=== PATIENT | male | born 1960 | race Caucasian/White ===

== ENCOUNTER 2023-07-08 15:49 | Emergency (ER) | payer OTHER, SELFPAY ==
[2023-07-08] VITALS (9 sets, daily range): BP systolic 158–179; BP diastolic 89–104; PULSE 65–80; RESP 16–22; TEMP 37.1; O2SAT 96–100; BMI 29.8
--- NOTE | 2023-07-08 16:00 | DI.RAD.S_ITS ---
PROCEDURE: XR CHEST 1V INDICATIONS: chest pain TECHNIQUE: One view of the chest was acquired. COMPARISON: None. FINDINGS: Surgical changes and devices: None. Lungs and pleura: Lungs are clear. No pleural effusions or pneumothorax. Mediastinum: Mediastinal contours appear normal. Heart size is normal. Bones and chest wall: No suspicious bony lesions. Overlying soft tissues appear unremarkable. IMPRESSION: No acute cardiopulmonary disease process. Dictated by: Farrah Vital MD, PhD on 07/08/2023 at 16:35 Approved by: Farrah Vital MD, PhD on 07/08/2023 at 16:36
[2023-07-08] MEDS: ASPIRIN 81 MG CHEW TAB 324 MG PO (16:07)
[2023-07-08 16:16] LABS: Add Manual Diff / Slide Review NO; Basophils Absolute Auto 100 /uL (0-100); Basophils Percent Auto 1.1 % (0-2); Eosinophils Absolute Auto 200 /uL (0-450); Eosinophils Percent Auto 3.8 % (2-4); Hematocrit 44.1 % (41-53); Hemoglobin 14.7 g/dL (13.5-17.5); Lymphocytes Absolute Auto 1200 /uL (1100-4500); Lymphocytes Percent Auto 22.6 % (25-40); Mean Corpuscular HGB Conc 33.4 % (30-36); Mean Corpuscular Hemoglobin 29.8 PG (26-34); Mean Corpuscular Volume 89.2 fL (80-100); Monocytes Absolute Auto 500 /uL (0-900); Monocytes Percent Auto 10.1 % (3-14); Neutrophils Absolute Auto 3300 /uL (1500-7000); Neutrophils Percent Auto 62.4 % (50-75); Platelet Count 195 X10^3/uL (150-400); Red Blood Cell Count 4.95 X10^6/uL (4.5-5.9); Red Cell Distribution Width 13.1 % (11.6-14.8); White Blood Cell Count 5.2 X10^3/uL (4.5-11.0)
[2023-07-08 16:25] LABS: INR 1.1 (0.9-1.3); Prothrombin Time 12.1 SECONDS (10.1-12.7)
[2023-07-08 16:28] LABS: PTT Partial Thromboplastin Tim 30 SECONDS (26-36)
[2023-07-08 16:30] LABS: Alanine Aminotransferase 24 IU/L (<50); Albumin 4.2 g/dL (3.5-5.0); Albumin Globulin Ratio 1.6 (1.0-2.8); Alkaline Phosphatase 59 U/L (38-126); Aspartate Aminotransferase 21 IU/L (17-59); BUN Creatinine Ratio 23.9 (6-22); Bilirubin Total 0.3 mg/dL (0.2-1.3); Blood Urea Nitrogen 17 mg/dL (9-20); Calcium 8.8 mg/dL (8.4-10.2); Carbon Dioxide 25 mmol/L (22-32); Chloride 106 mmol/L (98-107); Creatine Kinase 100 U/L (55-170); Estimated Glomerular Filt Rate > 60 mL/min (>60); Globulin 2.6 g/dL (1.7-4.1); Glucose 94 mg/dL (80-110); HEMOLYSIS < 15 (0-50); Lipase 152 U/L (23-300); Magnesium 2.1 mg/dL (1.6-2.3); Potassium 3.9 mmol/L (3.4-5.1); Sodium 138 mmol/L (137-145); Total Protein 6.8 g/dL (6.3-8.2)
[2023-07-08 16:41] LABS: Troponin I < 0.012 ng/mL (0.01-0.034)
--- NOTE | 2023-07-08 17:27 | ED_ITS ---
HPI - Arrhythmia/Palpitations General Chief Complaint: Arrhythmia/Palpitations Stated Complaint: heart palpitations, swelling in lt breast glands Time Seen by Provider: 07/08/23 15:59 Source: patient Mode of arrival: Ambulatory History of Present Illness HPI narrative: 62-year-old male with history of hypothyroidism, hypertension presents by private vehicle from home for palpitations. Patient states that he had COVID-19 3 weeks ago, and after his COVID-19 infection cleared he began to experience intermittent palpitations. The palpitations are intermittent, seemed to be worsened by sugar intake, patient can not identify what makes him improve. He began to worry about his heart and since the palpitations have persisted he decided to present for evaluation. States that he was evaluated by Cardiology and [place] 4 years ago and states that he was told that he has ?0? calcifications in his heart. Related Data Home Medications Medication Instructions Recorded Confirmed ACETAMINOPHEN 0 mg PO Q4HP ##0 10/14/12 Allergies Allergy/AdvReac Type Severity Reaction Status Date / Time No Known Drug Allergies Allergy Verified 07/08/23 15:59 Review of Systems Review of Systems Narrative: CONSTITUTIONAL- Denies: fever, chills, fatigue HEENT- Denies: sore throat, nosebleed, vision changes RESPIRATORY- Denies: shortness of breath, cough, wheezing CARDIAC-reports: Palpitations Denies: chest pain, edema, orthopnea GI- Denies: abdominal pain, nausea, vomiting, constipation, diarrhea - Denies: frequency, dysuria, hematuria, flank pain MSK- Denies: extremity pain, extremity swelling, joint pain, joint swelling SKIN- Denies: rash, itching, burn, swelling NEUROLOGICAL- Denies: headache, numbness, weakness, dizziness PSYCHIATRIC- Denies: anxiety, depression, suicidal ideation, homicidal ideation Patient History Social History Smoking Status: Current every day smoker Smoking Status: Current every day smoker tobacco type: vaping alcohol intake frequency: a few times a month Substance Use Type: does not use Exam Initial Vital Signs Initial Vital Signs: Vital Signs Temperature 98.7 F 07/08/23 15:50 Pulse Rate 77 07/08/23 15:50 Respiratory Rate 18 07/08/23 15:50 Blood Pressure 179/104 H 07/08/23 15:50 Pulse Oximetry 98 07/08/23 15:50 Oxygen Delivery Method Room Air 07/08/23 15:50 Const: Awake, alert, no acute distress, nontoxic appearing Eyes: PERRL, EOMI, conjunctiva normal ENT: Atraumatic, dentition normal, mucous membranes moist Cardiac: regular rate, regular rhythm RESP: unlabored, clear bilaterally, no wheezing GI: Atraumatic, soft, nontender, nondistended, no rebound, no guarding MSK: Atraumatic, full range of motion, pulses equal Skin: Warm, Dry, intact, no rashes Neuro: AO x3, CN II-XII grossly intact, moves all extremities Psych: affect normal, mood normal, not suicidal, not homicidal Course Course Course Narrative: Well-appearing patient with several weeks of the sensation of palpitations. EKG is normal sinus rhythm without concerning findings. We will place on cardiac monitoring we will obtain cardiac workup. Orders Ordered: Discontinued Medications Aspirin (Aspirin 81 Mg Chew Tab) 324 mg PO NOW ONE Stop: 07/08/23 16:01 Last Admin: 07/08/23 16:07 Dose: 324 mg Documented By: ANNE Reevaluation(s) Reevaluation #1: Laboratory work is reviewed, unremarkable. Chest x-ray negative for acute findings. Patient has remained on computer assembler, there were no abnormal even ts noted. Patient informed of all lab and imaging findings, I counseled that I do not know the cause of his palpitations however there is no evidence of heart attack, thyroid issues, electrolyte abnormalities. Patient expressed understanding, he will follow up with his community health promoter in [place]. ED return precautions discussed at bedside. Patient expressed understanding of the plan and is in agreement at this time. All questions answered at the time of discharge. Vital Signs Vital signs: Vital Signs - 8 hr 07/08/23 15:50 07/08/23 15:56 07/08/23 16:00 Temperature 98.7 F Pulse Rate 77 77 75 Respiratory Rate 18 19 21 Blood Pressure 179/104 H Pulse Oximetry 98 98 97 Oxygen Delivery Method Room Air 07/08/23 16:01 07/08/23 16:01 07/08/23 16:30 Temperature Pulse Rate 76 Respiratory Rate 16 Blood Pressure 163/99 H 160/89 H Pulse Oximetry 97 Oxygen Delivery Method Room Air 07/08/23 16:30 07/08/23 17:00 07/08/23 17:00 Temperature Pulse Rate 73 67 Respiratory Rate 22 17 Blood Pressure 165/93 H Pulse Oximetry 96 96 Oxygen Delivery Method Room Air 07/08/23 17:30 07/08/23 17:30 07/08/23 18:00 Temperature Pulse Rate 65 Respiratory Rate 16 Blood Pressure 158/93 H 168/90 H Pulse Oximetry 96 Oxygen Delivery Method 07/08/23 18:00 Temperature Pulse Rate 65 Respiratory Rate 17 Blood Pressure Pulse Oximetry 96 Oxygen Delivery Method Room Air MDM - Arrhythmia/Palpitations Differential Diagnosis Differential diagnosis: Likely palpitations, anxiety and sinus tachycardia Lab Data 07/08/23 16:05 07/08/23 16:05 Labs: Lab Results 07/08/23 07/08/23 07/08/23 Range/Units 16:05 16:05 16:05 WBC 5.2 (4.5-11.0) X10^3/uL RBC 4.95 (4.5-5.9) X10^6/uL Hgb 14.7 (13.5-17.5) g/dL Hct 44.1 (41-53) % MCV 89.2 (80-100) fL MCH 29.8 (26-34) PG MCHC 33.4 (30-36) % RDW 13.1 (11.6-14.8) % Plt Count 195 (150-400) X10^3/uL Neut % (Auto) 62.4 (50-75) % Lymph % (Auto) 22.6 L (25-40) % [place] % (Auto) 10.1 (3-14) % Eos % (Auto) 3.8 (2-4) % Baso % (Auto) 1.1 (0-2) % Neut # (Auto) 3300 (6864-7597) /uL Lymph # (Auto) 1200 (5351-3279) /uL Acadia # (Auto) 500 (0-900) /uL Eos # (Auto) 200 (0-450) /uL Baso # (Auto) 100 (0-100) /uL PT 12.1 (10.1-12.7) SECONDS INR 1.1 (0.9-1.3) APTT 30 (26-36) SECONDS Sodium 138 (137-145) mmol/L Potassium 3.9 (3.4-5.1) mmol/L Chloride 106 (98-107) mmol/L Carbon Dioxide 25 (22-32) mmol/L BUN 17 (9-20) mg/dL Creatinine 0.71 (0.66-1.25) mg/dL Estimated GFR > 60 (>60) mL/min BUN/Creatinine Ratio 23.9 H (6-22) Glucose 94 (80-110) mg/dL Calcium 8.8 (8.4-10.2) mg/dL Magnesium 2.1 (1.6-2.3) mg/dL Total Bilirubin 0.3 (0.2-1.3) mg/dL AST 21 (17-59) IU/L ALT 24 (<50) IU/L Alkaline Phosphatase 59 (38-126) U/L Total Creatine Kinase 100 (55-170) U/L Troponin I < 0.012 (0.01-0.034) ng/mL Total Protein 6.8 (6.3-8.2) g/dL Albumin 4.2 (3.5-5.0) g/dL Globulin 2.6 (1.7-4.1) g/dL Albumin/Globulin Ratio 1.6 (1.0-2.8) Lipase 152 (23-300) U/L TSH (0.47-4.68) uIU/mL 07/08/23 Range/Units 16:05 WBC (4.5-11.0) X10^3/uL RBC (4.5-5.9) X10^6/uL Hgb (13.5-17.5) g/dL Hct (41-53) % MCV (80-100) fL MCH (26-34) PG MCHC (30-36) % RDW (11.6-14.8) % Plt Count (150-400) X10^3/uL Neut % (Auto) (50-75) % Lymph % (Auto) (25-40) % [place] % (Auto) (3-14) % Eos % (Auto) (2-4) % Baso % (Auto) (0-2) % Neut # (Auto) (9951-5473) /uL Lymph # (Auto) (6572-8236) /uL Acadia # (Auto) (0-900) /uL Eos # (Auto) (0-450) /uL Baso # (Auto) (0-100) /uL PT (10.1-12.7) SECONDS INR (0.9-1.3) APTT (26-36) SECONDS Sodium (137-145) mmol/L Potassium (3.4-5.1) mmol/L Chloride (98-107) mmol/L Carbon Dioxide (22-32) mmol/L BUN (9-20) mg/dL Creatinine (0.66-1.25) mg/dL Estimated GFR (>60) mL/min BUN/Creatinine Ratio (6-22) Glucose (80-110) mg/dL Calcium (8.4-10.2) mg/dL Magnesium (1.6-2.3) mg/dL Total Bilirubin (0.2-1.3) mg/dL AST (17-59) IU/L ALT (<50) IU/L Alkaline Phosphatase (38-126) U/L Total Creatine Kinase (55-170) U/L Troponin I (0.01-0.034) ng/mL Total Protein (6.3-8.2) g/dL Albumin (3.5-5.0) g/dL Globulin (1.7-4.1) g/dL Albumin/Globulin Ratio (1.0-2.8) Lipase (23-300) U/L TSH 1.91 (0.47-4.68) uIU/mL ECG Data Interpretation: Normal sinus rhythm, normal axis, normal rate, normal NJ intervals, no STEMI Discharge Plan Departure Patient Disposition: Home Clinical Impression: Palpitations Instructions: DI for Palpitations Prescriptions: No Action ACETAMINOPHEN 0 mg PO Q4HP Qty: 0 Referrals: Bill Hooker ND [Primary Care Provider] - Stand Alone Forms: Patient Portal/API
[2023-07-08 18:06] LABS: Thyroid Stimulating Hormone 1.91 uIU/mL (0.47-4.68)
== END 2023-07-08 18:45 | disposition home or self-care (01) ==
PROVIDERS: Emergency Provider Emergency Medicine; PCP Registered Nurse
DX: R00.2 Palpitations (principal); Z86.16 Personal history of COVID-19
CPT/HCPCS: 36415; 71045; 80053; 82550; 83690; 83735; 84443; 84484; 85025; 85610; 85730; 93005; 99284

== ENCOUNTER → 2024-02-03 15:33 | Outpatient (CLI) | payer OTHER, SELFPAY ==
[2024-02-03 17:53] LABS: Hemoglobin A1C% w Est Avg Glu 5.9 % (4.0-6.0)
[2024-02-03 17:54] LABS: Hematocrit 47.7 % (41-53); Hemoglobin 15.9 g/dL (13.5-17.5); Mean Corpuscular HGB Conc 33.2 % (30-36); Mean Corpuscular Hemoglobin 30.2 PG (26-34); Mean Corpuscular Volume 90.9 fL (80-100); Platelet Count 203 X10^3/uL (150-400); Red Blood Cell Count 5.25 X10^6/uL (4.5-5.9); Red Cell Distribution Width 13.4 % (11.6-14.8); White Blood Cell Count 5.1 X10^3/uL (4.5-11.0)
[2024-02-03 17:55] LABS: Add Manual Diff / Slide Review YES
[2024-02-03 18:26] LABS: Alanine Aminotransferase 37 IU/L (<50); Albumin 4.4 g/dL (3.5-5.0); Albumin Globulin Ratio 1.8 (1.0-2.8); Alkaline Phosphatase 96 U/L (38-126); Aspartate Aminotransferase 24 IU/L (17-59); BUN Creatinine Ratio 19.7 (6-22); Bilirubin Total 0.4 mg/dL (0.2-1.3); Blood Urea Nitrogen 14 mg/dL (9-20); Calcium 8.9 mg/dL (8.4-10.2); Carbon Dioxide 26 mmol/L (22-32); Chloride 108 mmol/L (98-107); Cholesterol 203 mg/dL (140-199); Estimated Glomerular Filt Rate > 60 mL/min (>60); Globulin 2.4 g/dL (1.7-4.1); Glucose 128 mg/dL (80-110); HDL Cholesterol 38 mg/dL (40-60); HEMOLYSIS 24 (0-50); LDL Cholesterol Calculated 126 mg/dL (<100); Potassium 3.9 mmol/L (3.4-5.1); Sodium 141 mmol/L (137-145); Total Protein 6.8 g/dL (6.3-8.2); Triglycerides 196 mg/dL (35-150)
[2024-02-03 18:43] LABS: TSH w/ Reflex to FT4 4.05 uIU/mL (0.47-4.68)
[2024-02-03 19:13] LABS: Hep C Virus Ab w/Reflex Quant NEGATIVE s/c (NEGATIVE)
[2024-02-03 20:29] LABS: Neutrophils Absolute Manual 3213 /uL (3000-5900); RBC Morphology Normal Morphology; Total Cells Counted 100
[2024-02-03 20:30] LABS: Platelet Estimate Adequate on smear
== END ==
PROVIDERS: PCP Nurse Practitioner Family; Referring Provider Nurse Practitioner Family; Visit Provider Nurse Practitioner Family
DX: Z11.59 Encounter for screening for other viral diseases (principal); I10 Essential (primary) hypertension
CPT/HCPCS: 36415; 80053; 80061; 83036; 84443; 85007; 85025; 86803

== ENCOUNTER → 2024-03-23 09:40 | Outpatient (CLI) | payer OTHER, SELFPAY ==
--- NOTE | 2024-03-23 09:41 | DI.CT.S_ITS ---
PROCEDURE: CT LUNG LOW DOSE SCREENING INDICATIONS: >20 pack year history, quit 2022 TECHNIQUE: Noncontrast 2.0-2.5 mm thick sections acquired from the pulmonary apices to the posterior costophrenic angles. 7 mm thick axial MIP, and 5 mm coronal and sagittal reformats were then acquired. For radiation dose reduction, the following was used: automated exposure control, adjustment of mA and/or kV according to patient size. COMPARISON: [facility], CR, XR CHEST 1V, 07/08/2023, 16:18. FINDINGS: Image quality: Diagnostic. Lower Neck: No enlarged lymph nodes. Thyroid: No thyroid nodules which require sonographic follow up, per consensus guidelines. Axillae: No enlarged lymph nodes. Chest Wall: Unremarkable. Bones: Visualized osseous structures appear intact without acute fracture or focal destructive lesion. No acute compression fractures of the imaged spine. Lungs and Pleura: No pneumothorax or pleural effusions. No focal consolidation. 4 mm left upper lobe nodule (187/series 3). There is a 4 mm right posterior upper lobe nodule (50/series 3). Moderate upper lobe predominant centrilobular pulmonary emphysematous changes. No suspicious mass lesions. No septal thickening or nodularity. Visualized airways appear patent. Mild bibasilar atelectasis. Heart: Heart size is normal. No pericardial effusion. Thoracic Vessels: The aorta and pulmonary arteries demonstrate normal size. Mediastinum and Shara: No enlarged lymph nodes. Esophagus: No wall thickening. No hiatal hernia. Upper Abdomen: Visualized upper abdomen solid organs and bowel loops appear normal. IMPRESSION: Small bilateral pulmonary nodules. 1 measures approximately 4 mm in the left upper lobe and a 2nd 4mm nodule noted in the right upper lobe. Moderate upper lobe predominant centrilobular pulmonary emphysematous changes. LUNG-RADS 2; continued annual screening, if eligible. Clinically Significant Non-pulmonary Findings: None. Dictated by: Mike Peoples M.D. on 03/23/2024 at 11:51 Approved by: Mike Peoples M.D. on 03/23/2024 at 12:00
== END ==
PROVIDERS: PCP Nurse Practitioner Family; Referring Provider Nurse Practitioner Family; Visit Provider Nurse Practitioner Family
DX: Z12.2 Encounter for screening for malignant neoplasm of respiratory organs (principal); Z87.891 Personal history of nicotine dependence; R91.8 Other nonspecific abnormal finding of lung field
CPT/HCPCS: 71271

== ENCOUNTER → 2024-04-04 13:11 | Outpatient (CLI) | payer OTHER, SELFPAY ==
[2024-04-04 13:57] LABS: Alanine Aminotransferase 33 IU/L (<50); Albumin 4.1 g/dL (3.5-5.0); Albumin Globulin Ratio 1.5 (1.0-2.8); Alkaline Phosphatase 75 U/L (38-126); Aspartate Aminotransferase 27 IU/L (17-59); BUN Creatinine Ratio 24.4 (6-22); Bilirubin Total 0.5 mg/dL (0.2-1.3); Blood Urea Nitrogen 19 mg/dL (9-20); Calcium 8.5 mg/dL (8.4-10.2); Carbon Dioxide 28 mmol/L (22-32); Chloride 108 mmol/L (98-107); Estimated Glomerular Filt Rate > 60 mL/min (>60); Globulin 2.8 g/dL (1.7-4.1); Glucose 92 mg/dL (80-110); HEMOLYSIS 33 (0-50); Potassium 4.1 mmol/L (3.4-5.1); Sodium 139 mmol/L (137-145); Total Protein 6.9 g/dL (6.3-8.2)
== END ==
PROVIDERS: PCP Nurse Practitioner Family; Referring Provider Nurse Practitioner Family; Visit Provider Nurse Practitioner Family
DX: I10 Essential (primary) hypertension (principal)
CPT/HCPCS: 36415; 80053

== ENCOUNTER → 2024-05-04 12:35 | Outpatient (CLI) | payer OTHER, SELFPAY ==
--- NOTE | 2024-05-04 12:36 | DI.ECHO.S_ITS ---
[facility] : : [address] : : [place] : : [id number] : : Phone: [phone] Echocardiogram Report + + :Name: BROWN CARMONA III Study Date: 05/04/2024 Height: 69 in : :[facility] ReadingLocation: Weight: 223 lb : : Gender: Male BSA: 2.2 m2 : :: 1960 Age: 63 yrs BP: 142/92 mmHg: :Reason For Study: EVALUATION OF 1ST DEGREE AV BLOCK WITH PVCS : :Ordering Physician: VIVIENNE, : :AGUILA Performed By: Jazmyn Rosa : :Referring: AGUILA PALAFOX : + + Interpretation Summary 1. The left ventricular contractility is normal. Estimated ejection fraction is greater than 55% with no segmental wall motion abnormalities. No LVH. Grade 1 diastolic dysfunction. 2. The right ventricular contractility is normal. 3. All cardiac chambers are of normal size. 4. No significant valvular abnormalities are noted. 5. No obvious intracardiac shunts. 6. No obvious intracardiac masses nor thrombi. 7. No hemodynamically significant pericardial effusion. 8. No echocardiographic evidence of elevated right-sided filling pressures. Conclusion: Normal biventricular systolic function with no significant valvular abnormalities. Procedure: A two-dimensional transthoracic echocardiogram with color flow and Doppler was performed. The study quality was technically adequate. There is no prior echocardiogram noted for this patient. The patient had frequent PVCs during the exam. The heart rate ranged between 73-77 bpm during the study. Left Ventricle: The left ventricle is normal in size and wall thickness. The ejection fraction is estimated to be 60-65%. Right Ventricle: The right ventricle is normal in size and function. Atria: The left atrial size is normal. Right atrial size is normal. There is no Doppler evidence for an interatrial shunt. Mitral Valve: The mitral valve is normal in structure and function. There is trace mitral regurgitation. Aortic Valve: The aortic valve is trileaflet. The aortic valve opens well. There is no aortic valve stenosis. No aortic regurgitation is present. Tricuspid Valve: The tricuspid valve is normal in structure and function. There is trace tricuspid regurgitation. Pulmonic Valve: The pulmonic valve leaflets are thin and pliable; valve motion is normal. There is trace pulmonic regurgitation. Great Vessels: The aortic root is normal size. The dimensions of the ascending aorta are normal. The IVC is of normal diameter and collapses greater than 50% with a sniff. This suggests a low right atrial pressure of 3 mm Hg. Pericardium/ Pleura There is no pericardial effusion. There is no pleural effusion. MMode/2D Measurements & Calculations LVIDd: 5.2 cm LVOT diam: 2.3 cm LVIDs: 3.8 cm Ao root diam: 4.0 cm FS: 25.6 % asc Aorta Diam: 3.5 cm IVSd: 0.92 cm Ao Arch Diam (Prox Trans): 3.0 cm LVPWd: 0.96 cm LV pimentel. diameter/BSA (cm/m^2): 2.4 LV sys. diameter/BSA (cm/m^2): 1.8 LA A2 area: 16.8 cm2 RA long axis: 4.6 cm LA A4 area: 15.7 cm2 RA area: 13.9 cm2 LA length (vol): 4.7 cm RA vol: 36.0 ml LA vol: 47.3 ml RA : 16.7 ml/m2 LA vol index: 21.9 ml/m2 IVC diam: 1.6 cm RVD1 (basal): 3.8 cm RVD2 (mid): 2.8 cm TAPSE: 2.2 cm Doppler Measurements & Calculations Ao V2 max: 99.8 cm/sec LVOT Max Papito: 86.3 cm/sec Ao V2 mean: 71.5 cm/sec LV V1 max P.0 mmHg Ao max P.0 mmHg LV V1 VTI: 17.3 cm Ao mean P.3 mmHg NANCY(I,D): 3.5 cm2 Ao V2 VTI: 20.1 cm NANCY(V,D): 3.6 cm2 sev ratio: 0.86 NANCY indexed to BSA (cm^2/m^2): 1.6 MV E max papito: 61.4 cm/sec PA V2 max: 112.5 cm/sec MV A max papito: 59.9 cm/sec PA V2 mean: 75.5 cm/sec MV E/A: 1.0 PA mean P.6 mmHg Med Peak E' Papito: 8.5 cm/sec PA pr(Accel): 22.5 mmHg E/E' med: 7.2 Lat Peak E' Papito: 8.6 cm/sec E/E' lat: 7.2 E/e' average: 7.2 MV dec time: 0.19 sec SV(LVOT): 71.1 ml Reading Physician:
== END ==
PROVIDERS: PCP Nurse Practitioner Family; Referring Provider Internal Medicine; Visit Provider Internal Medicine
DX: I44.0 Atrioventricular block, first degree (principal); I49.3 Ventricular premature depolarization; R00.2 Palpitations; I10 Essential (primary) hypertension
CPT/HCPCS: 93306

== ENCOUNTER → 2024-05-04 15:01 | Outpatient (CLI) | payer OTHER, SELFPAY ==
--- NOTE | 2024-05-04 15:02 | DI.NM.S_ITS ---
PROCEDURE: NM EXERCISE TREADMILL NON NUC COMPARISON: None. INDICATIONS: evaluation of 1st degree AV block with PVC FINDINGS: The patient exercised for 3 minutes and 40 seconds reaching 4.6METs, DINORAH +50%. 95% of maximum heart rate reached. Hypertension at rest (BP 156/102mmHg) and hypertensive response to exercise (max BP 254/108mmHg). No angina and no diagnostic ST changes during exercise or recovery. Frequent PVCs during recovery. IMPRESSION: Low risk, normal treadmill ECG only stress test from inducible ischemia standpoint. Severely reduced exercise capacity (DINORAH +50%). Hypertension at rest (BP 156/102mmHg) and hypertensive response to exercise (max BP 254/108mmHg). Dictated by: Bill Linn MD on 05/05/2024 at 10:52 Approved by: Bill Linn MD on 05/05/2024 at 10:54
== END ==
PROVIDERS: PCP Nurse Practitioner Family; Referring Provider Orthopaedic Surgery Orthopaedic Surgery of the Spine; Visit Provider Orthopaedic Surgery Orthopaedic Surgery of the Spine
DX: I49.3 Ventricular premature depolarization (principal); I10 Essential (primary) hypertension; I44.0 Atrioventricular block, first degree; R00.2 Palpitations
CPT/HCPCS: 93017; 93306

== ENCOUNTER → 2024-07-06 15:34 | Outpatient (CLI) | payer BC, SELFPAY ==
[2024-07-06 17:17] LABS: BUN Creatinine Ratio 27.2 (6-22); Blood Urea Nitrogen 22 mg/dL (9-20); Calcium 9.1 mg/dL (8.4-10.2); Carbon Dioxide 29 mmol/L (22-32); Chloride 103 mmol/L (98-107); Estimated Glomerular Filt Rate > 60 mL/min (>60); Glucose 87 mg/dL (80-110); HEMOLYSIS < 15 (0-50); Potassium 3.8 mmol/L (3.4-5.1); Sodium 138 mmol/L (137-145)
== END ==
PROVIDERS: PCP Nurse Practitioner Family; Referring Provider Nurse Practitioner Family; Visit Provider Nurse Practitioner Family
DX: I10 Essential (primary) hypertension (principal)
CPT/HCPCS: 36415; 80048

== ENCOUNTER → 2024-08-02 13:55 | Outpatient (CLI) | payer BC, SELFPAY ==
--- NOTE | 2024-08-02 13:56 | DI.RAD.S_ITS ---
PROCEDURE: XR HIP W PEL IF DONE BILATERAL 3 VIEWS INDICATIONS: bilateral hip pain TECHNIQUE: AP pelvis with lateral views of the bilateral hips, three views total. COMPARISON: None. 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 Mild degenerative changes lower lumbar spine and sacroiliac joints. No radiographic evidence of fracture, dislocation or high attenuation soft tissue foreign body. IMPRESSION: Moderate to severe degenerative changes as discussed above. Dictated by: Daniel Grimm M.D. on 08/05/2024 at 9:18 Approved by: Daniel Grimm M.D. on 08/05/2024 at 9:22
== END ==
PROVIDERS: PCP Nurse Practitioner Family; Referring Provider Nurse Practitioner Family; Visit Provider Nurse Practitioner Family
DX: M25.551 Pain in right hip (principal); M25.552 Pain in left hip
CPT/HCPCS: 73522

== ENCOUNTER → 2025-01-26 08:17 | Outpatient (CLI) | payer BC, SELFPAY ==
[2025-01-26 09:21] LABS: BUN Creatinine Ratio 29.6 (6-22); Blood Urea Nitrogen 24 mg/dL (9-20); Calcium 8.9 mg/dL (8.4-10.2); Carbon Dioxide 29 mmol/L (22-32); Chloride 104 mmol/L (98-107); Cholesterol 195 mg/dL (140-199); Estimated Glomerular Filt Rate > 60 mL/min (>60); Glucose 110 mg/dL (80-110); HDL Cholesterol 34 mg/dL (40-60); HEMOLYSIS < 15 (0-50); LDL Cholesterol Calculated 127 mg/dL (<100); Potassium 3.3 mmol/L (3.4-5.1); Sodium 139 mmol/L (137-145); Triglycerides 169 mg/dL (35-150)
[2025-01-26 09:25] LABS: Add Manual Diff / Slide Review NO; Basophils Absolute Auto 0 /uL (0-100); Eosinophils Absolute Auto 200 /uL (0-450); Eosinophils Percent Auto 4.3 % (2-4); Hematocrit 47.8 % (41-53); Hemoglobin 16.1 g/dL (13.5-17.5); Lymphocytes Absolute Auto 1300 /uL (1100-4500); Lymphocytes Percent Auto 26.9 % (25-40); Mean Corpuscular HGB Conc 33.7 % (30-36); Mean Corpuscular Hemoglobin 30.8 PG (26-34); Mean Corpuscular Volume 91.5 fL (80-100); Monocytes Absolute Auto 500 /uL (0-900); Monocytes Percent Auto 9.8 % (3-14); Neutrophils Absolute Auto 2800 /uL (1500-7000); Platelet Count 193 X10^3/uL (150-400); Red Blood Cell Count 5.23 X10^6/uL (4.5-5.9); Red Cell Distribution Width 13.4 % (11.6-14.8); White Blood Cell Count 4.8 X10^3/uL (4.5-11.0)
== END ==
PROVIDERS: PCP Nurse Practitioner Family; Referring Provider Nurse Practitioner Family; Visit Provider Nurse Practitioner Family
DX: I49.3 Ventricular premature depolarization (principal); I10 Essential (primary) hypertension
CPT/HCPCS: 36415; 80048; 80061; 85025